=== PATIENT | female | born 1945 | race Caucasian/White ===

== ENCOUNTER 2018-08-27 12:25 | Emergency (ER) | payer OTHER, SELFPAY ==
[2018-08-27 12:34] VITALS: BP 175/85; PULSE 71; RESP 16; O2SAT 95; BMI 39.6
[2018-08-27 14:09] VITALS: TEMP 37.1
--- NOTE | 2018-08-27 14:16 | ED.EXTPRO ---
HPI - Extremity Problem <TONY Blancas - Last Filed: 08/28/18 02:54> General Chief complaint: Extremity Problem,Nontraumatic Stated complaint: allergy reaction Time Seen by Provider: 08/27/18 13:55 Source: patient Mode of arrival: ambulatory Limitations: no limitations History of Present Illness HPI Narrative: This is a 73-year-old female, formal smoker, with history of osteoarthritis presents today with the pruritus on bilateral palm with swelling for 3 days. She also reports swelling on her right hand is worse than left hand. She reports some discomfort from the swelling which cause pressure discomfort in her finger joints. She denies new exposure to lotion, soap, detergent, food. She was seen at walk-in or urgent care yesterday and was prescribed [id number]-[id number] hydrocortisone cream and was instructed to use cool compress. She reports this helped minimally. She has difficulty sleeping from extreme itching and has been taking [id number] Benadryl 2 tabs for every 4-6 hours, Benadryl lotion, calamine lotion which helped mildly. She denies difficulty breathing, oropharyngeal edema, difficulty swallowing, chest pain, nausea vomiting, dizziness. She denies fever chills. Related Data Home Medications Medication Instructions Recorded Confirmed losartan 50 mg tablet 50 mg PO DAILY 08/26/18 08/26/18 omeprazole 20 mg capsule,delayed 20 mg PO DAILY 08/26/18 08/26/18 release propranolol PO 08/26/18 08/26/18 Previous Rx's Medication Instructions Recorded prednisone 40 mg PO DAILY 5 Days #5 tab 08/27/18 ranitidine HCl [Zantac] 150 mg PO DAILY #7 tab 08/27/18 Allergies Allergy/AdvReac Type Severity Reaction Status Date / Time No Known Drug Allergies Allergy Verified 08/27/18 12:34 Review of Systems <TONY Blancas - Last Filed: 08/28/18 02:54> Review of Systems General: See HPI, HEENT: Denies sinus pain, ear pain, sore throat, difficulty swallowing, dizziness. Respiratory: See HPI Cardiovascular: Denies chest pain, palpitations, orthopnea, edema. Gastrointestinal: Denies nausea, vomiting, abdominal pain, diarrhea, constipation, melena. : Denies dysuria, frequency, incontinence, hematuria, urinary retention. Musculoskeletal: Denies weakness, bony pain. Mild discomfort in bilateral finger joints, R>L hand, edema in bilateral hands, R>L Skin: Denies open wound, lesions, rash. Neurologic: Denies weakness, headache, numbness, change in speech, confusion, seizures, incoordination. Psychiatric: No concerning psychosocial issues. 12-point review of systems is negative except for those stated above. PFSH <TONY Blancas - Last Filed: 08/28/18 02:54> Medical History (Updated 08/28/18 @ 02:36 by TONY Blancas) Arthritis (Acute) COPD (chronic obstructive pulmonary disease) (Acute) GERD (gastroesophageal reflux disease) (Acute) HTN (hypertension) (Acute) Social History Smoking Status: Former smoker Social History Smoking Status: Former smoker Exam <TONY Blancas - Last Filed: 08/28/18 02:54> Narrative Exam Narrative: GEN: Alert, oriented x 3, well appearing and nourished, and in mild distress. Witnessed frequent scratching bilateral palms during exam. Head: Normal cephalic, atraumatic. No scalp or temporal tenderness, palpable mass or rash. EYES: Pupils are equal, round, and reactive to light and accommodation. Extraocular muscles are intact bilaterally. There is no subconjunctival hemorrhage, exudate and sclera non-icteric. ENT: Hearing grossly intact. Nose without bleeding, purulent discharge. Mucous membrane moist, no mucosal lesion. Throat without erythema, tonsillar hypertrophy or exudate. Uvula in midline, airway patent. Neck: Trachea in midline. No JVD, non-tender without lymphadenopathy. No masses or thyroid megaly. Supple, non-tender and meningeal signs. CARDIAC: Normal regular rate and rhythm without murmurs, gallops, or rubs. No chest wall tenderness. No cyanosis or pallor. Capillary refill is less than 2 seconds. RESPIRATORY: Lungs are cleat to auscultate bilaterally. No cough, wheezes, rales, or rhonchi. No stridor, respiratory distress, increase work of breathing, or accessary muscle used. ABD: Abdomen soft, nontender and non-distended. No guarding or rebound tenderness to palpate. Bowel sounds are normal in all 4 quadrants. There is no palpable masses or organomegaly. EXT: Moderate edema to R hand, mild edema to L hand. Bilateral palms with dark erythema and warm to touch. Full painless ROM of all extremities with no loss of sensation, strength, effusion. SKIN: Warm, dry, normal color for patient. No lesions or rash other than on bilateral palms. BACK: Nontender without deformity or crepitance. No flank tenderness. NEUROLOGICAL: Alert and oriented to place, time and person. Sensation and motor function intact bilaterally. No facial droops, dysphasia. PSYCHIATRIC: Good judgement and reason, without hallucinations, abnormal affect or abnormal behaviors during the examination. Patient is not suicidal. Initial Vital Signs Initial Vital Signs: Vital Signs Pulse Rate 71 08/27/18 12:34 Respiratory Rate 16 08/27/18 12:34 Blood Pressure 175/85 H 08/27/18 12:34 Pulse Oximetry 95 08/27/18 12:34 <Casper Franco DO - Last Filed: 08/28/18 23:54> Initial Vital Signs Initial Vital Signs: Vital Signs Pulse Rate 71 08/27/18 12:34 Respiratory Rate 16 08/27/18 12:34 Blood Pressure 175/85 H 08/27/18 12:34 Pulse Oximetry 95 08/27/18 12:34 Course <TONY Blancas - Last Filed: 08/28/18 02:54> Course Narrative: Patient was treated with IM Benadryl, Zantac p.o., prednisone p.o., for her symptoms. She reports the pruritus has improved after the medications administered. She also used ice pack on her palms for itching and swelling. She did not had short of breath, difficulty breathing, swelling to oropharynx. Given the patient did not exhibit diffusion to her finger joints, no bony tenderness, no fever, no fatigue, we will treat the patient as an allergic reaction. Orders Ordered: Discontinued Medications Diphenhydramine HCl (Benadryl) 50 mg IM NOW ONE Stop: 08/27/18 14:26 Last Admin: 08/27/18 14:38 Dose: 50 mg Prednisone (Deltasone) 40 mg PO NOW ONE Stop: 08/27/18 14:26 Last Admin: 08/27/18 14:36 Dose: 40 mg Ranitidine HCl (Zantac) 150 mg PO NOW ONE Stop: 08/27/18 14:26 Last Admin: 08/27/18 14:37 Dose: 150 mg Vital Signs - 8 hr 08/27/18 12:34 08/27/18 14:09 08/27/18 15:55 Temperature 98.8 F Pulse Rate 71 57 L Respiratory Rate 16 18 Blood Pressure 175/85 H Blood Pressure [Right Arm] 183/90 H Pulse Oximetry 95 95 08/27/18 15:56 Temperature 98.7 F Pulse Rate Respiratory Rate Blood Pressure Blood Pressure [Right Arm] Pulse Oximetry <Casper Franco DO - Last Filed: 08/28/18 23:54> Orders Ordered: Discontinued Medications Diphenhydramine HCl (Benadryl) 50 mg IM NOW ONE Stop: 08/27/18 14:26 Last Admin: 08/27/18 14:38 Dose: 50 mg Prednisone (Deltasone) 40 mg PO NOW ONE Stop: 08/27/18 14:26 Last Admin: 08/27/18 14:36 Dose: 40 mg Ranitidine HCl (Zantac) 150 mg PO NOW ONE Stop: 08/27/18 14:26 Last Admin: 08/27/18 14:37 Dose: 150 mg Vital Signs - 8 hr 08/27/18 12:34 08/27/18 14:09 08/27/18 15:55 Temperature 98.8 F Pulse Rate 71 57 L Respiratory Rate 16 18 Blood Pressure 175/85 H Blood Pressure [Right Arm] 183/90 H Pulse Oximetry 95 95 08/27/18 15:56 Temperature 98.7 F Pulse Rate Respiratory Rate Blood Pressure Blood Pressure [Right Arm] Pulse Oximetry MDM - Extremity (Nontraumatic) <TONY Blancas - Last Filed: 08/28/18 02:54> Differential Diagnosis Likely cellulitis and other (allergic reaction, cholestasis) Medical Records Attestation: I reviewed the patient's medical records. MDM Narrative Medical decision making narrative: This is a 73-year-old female patient who presents with pruritus, swelling, redness, mild discomfort to her hand from swelling for the last 3 days. No open wounds were appreciated during exam. She had good circulation per radial pulse, motion, sensation. She did not report fever, chills, nausea, vomiting, dizziness. The patient was treated with IM injection of Benadryl, Zantac p.o., prednisone p.o. while in the ER to treat her symptoms. The patient reports symptoms have improved after the medication administration. We talked in length about anaphylactic symptoms and signs and that this is an emergent allergic reaction. We discussed red flag symptoms such as anaphylactic symptoms, fever, increasing hand pain, swelling, nausea, vomiting, dizziness. Her symptoms will be treated as an allergic reaction involving skin and she will be going home with a short burst of steroid and H2 randi in addition to her home medications as she has been using. She was advised to avoid triggers and follow with her primary care physician if her symptoms are not relieved further evaluation. She agrees with the plan of treatment and no further questions expressed at this time. Discharge Plan Departure Patient Disposition: Home Clinical Impression: Allergic reaction Qualifiers: Encounter type: initial encounter Qualified Code(s): T78.40XA - Allergy, unspecified, initial encounter Discharge Date/Time: 08/27/18 16:58 Interventions: ED Discharge Assessment Last Done: 08/27/18 16:57 Instructions: DI for General Allergic Reactions Activity Restrictions/Additional Instructions: You have been diagnosed with [ allergic reaction. The itching on your hands have improved after the medications provided today in ER with Benadryl, Prednisone, and Zantac ]. What to do: *Take your medications as directed. *Follow up with your primary care provider in 2-3 days, call for an appointment. Let them know you were seen in the ED and that we asked you to be seen in follow up. *Return to ED if you have any new, worsening, or concerning symptoms, such as [ chest pain, breathing trouble, any acute worsening symptoms ]. Prescriptions: New prednisone 20 mg tablet 40 mg PO DAILY 5 Days Qty: 5 RF: 0 ranitidine HCl [Zantac] 150 mg tablet 150 mg PO DAILY Qty: 7 RF: 0 No Action losartan 50 mg tablet 50 mg PO DAILY RF: 0 omeprazole 20 mg capsule,delayed release(DR/EC) 20 mg PO DAILY RF: 0 propranolol PO RF: 0 Referrals: Debra Stevens PA-C [Primary Care Provider] - <Casper [place], DO - Last Filed: 08/28/18 23:54> Cosign ED Attending Cosabrilature Attestation: I was immediately available in the department for consultation. Documentation has been reviewed. I agree with assessment and plan.
[2018-08-27] MEDS: predniSONE 20 MG TABLET 40 MG PO (14:36)
[2018-08-27] MEDS: diphenhydrAMINE 50 MG/ML VIAL IM (14:38)
--- NOTE | 2018-08-27 15:47 | PC.NURSE ---
Pt states she is improved, pt understands that the steroids will take time to work. Pt has verbalized readiness to go home. Has a ride home.
[2018-08-27 15:55] VITALS: BP 183/90; PULSE 57; RESP 18; O2SAT 95
[2018-08-27 15:56] VITALS: TEMP 37.1
[2018-08-27 16:42] VITALS: BP 188/105
[2018-08-27 16:44] VITALS: BP 171/83; PULSE 60
== END 2018-08-27 16:58 | disposition home or self-care (01) ==
PROVIDERS: Emergency Provider Nurse Practitioner Family; PCP Physician Assistant Medical
DX: T78.40XA Allergy, unspecified, initial encounter (principal)
CPT/HCPCS: 99283; J1200

== ENCOUNTER → 2022-10-26 11:12 | Outpatient (CLI) | payer OTHER, SELFPAY ==
--- NOTE | 2022-10-26 11:14 | DI.RAD.S_ITS ---
PROCEDURE: FL JOINT INJECTION LARGE LT INDICATIONS: OSTEOARTHRITIS D/T HIP DYSPLASIA COMPARISON: None. TECHNIQUE: The indications, alternatives, benefits, risks, and complications of the procedure were explained to the patient. Written informed consent was obtained and placed in the chart. The patient was placed in an appropriate position on the fluoroscopy table, and a site was chosen for percutaneous access under fluoroscopic guidance. The site was prepped and draped in a sterile fashion. Local anesthetic was administered using a 1% lidocaine solution. A hypodermic or spinal needle was then used to access the symptomatic joint. Intra-articular location of the needle tip was confirmed by injecting a small amount of contrast, followed by steroid administration. The needle was then withdrawn, and a bandage applied to the puncture site. FINDINGS: Joint injected: Left hip Medications injected: 4 mL of 40 mg/mL Kenalog and 0.5% Ropivacaine mixture. Patient's pain before injection: 4-5 out of 10. Patient's pain after injection: 0 out of 10. Complications: None. IMPRESSION: Successful fluoroscopically guided administration of steroid and anaesthetic solution into the left hip joint. Dictated by: Abdelrahman Kaur M.D. on 10/26/2022 at 14:00 Approved by: Abdelrahman Kaur M.D. on 10/26/2022 at 14:02
[2022-10-26] MEDS: LIDOCAINE 1% 20 ML INJ (14:22)
[2022-10-26] MEDS: ROPIVACAINE 0.5% PF 5 MG/ML 20ML VIAL 20 ML INJ (14:23)
[2022-10-26] MEDS: TRIAMCINOLONE 40 MG/ML VIAL INTRA-ARTI (14:24)
== END ==
PROVIDERS: PCP Physician Assistant Medical; Referring Provider Orthopaedic Surgery; Visit Provider Orthopaedic Surgery
DX: M16.32 Unilateral osteoarthritis resulting from hip dysplasia, left hip (principal)
CPT/HCPCS: 20610; 77002

== ENCOUNTER 2023-08-26 10:26 | Inpatient (IN) | payer OTHER, SELFPAY ==
[2023-08-17 07:57] VITALS: BMI 35.9
[2023-08-24] VITALS (12 sets, daily range): BP systolic 103–149; BP diastolic 60–89; PULSE 62–89; RESP 13–20; TEMP 36.1–36.9; O2SAT 93–98; BMI 35.9; BMI 36.7
--- NOTE | 2023-08-24 | DI.RAD.S_ITS ---
PROCEDURE: XR PELVIS 1-2V INDICATIONS: INTRA OP LEFT HIP TECHNIQUE: Intra-operative view of the pelvis and hip acquired. COMPARISON: None. FINDINGS: Bones: Intraoperative devices prior to placement of arthroplasty prostheses are in expected positions. No fractures or suspicious bony lesions. Right hip arthroplasty in place without evidence of complication. Soft tissues: Overlying surgical retractors are present, along with other intraoperative changes. IMPRESSION: Intraoperative image during left hip arthroplasty. Dictated by: Shlomo Noyola M.D. on 08/24/2023 at 13:58 Approved by: Shlomo Noyola M.D. on 08/24/2023 at 13:58
--- NOTE | 2023-08-24 06:52 | DI.RAD.S_ITS ---
P she ROCEDURE: XR HIP W PEL IF DONE LT 2V INDICATIONS: elizabeth TECHNIQUE: 2 view(s) of the hip acquired. COMPARISON: [facility], CR, XR PELVIS WITH LATERAL HIP LEFT, 05/24/2023, 14:02. [facility], CR, XR PELVIS 1-2V, 08/24/2023, 12:24. FINDINGS: Bones: Patient is status post left hip arthroplasty, with hardware components in expected positions. The hip joint appears congruent. Stable right hip arthroplasty which appears intact on limited AP view. The visualized bony structures appear intact. Soft tissues: Overlying postoperative changes are noted. No suspicious soft tissue densities. IMPRESSION: Expected post-operative appearance of a left hip total arthroplasty. Dictated by: Sultana Del Castillo M.D. on 08/24/2023 at 14:57 Approved by: Sultana Del Castillo M.D. on 08/24/2023 at 14:58
[2023-08-24] MEDS: LACTATED RINGERS 1,000 ML 42 ML IV ×2 (09:09→13:08)
[2023-08-24] MEDS: CELECOXIB 200 MG CAPSULE PO (09:25)
[2023-08-24] MEDS: VANCOMYCIN 1,000 MG/200 ML PIGGYBACK 200 MG IV (09:45)
--- NOTE | 2023-08-24 10:58 | PM.PREOP ---
Pre-operative Note Interval Note History & Physical reviewed/Exam performed by Physician: Yes Changes to H&P: No
--- NOTE | 2023-08-24 10:59 | P.OP_ITS ---
Operative Date/Time/Diagnoses Date of procedure: 08/24/23 Time of procedure: 11:20 Pre-op diagnosis: Left hip OA Post-op diagnosis: same Procedure & Clinicians Procedure: Left total hip arthroplasty posterior approach Same procedure as scheduled: Yes Indications: The patient has had progressively worsening left hip pain with radiographic brittny nges consistent with arthritis. Non-operative management has failed and the patient has requested total hip replacement. The risks, benefits and alternatives to surgery were discussed with the patient prior to proceeding. Risks discussed included, but were not limited to, failure to relieve pain, leg length discrepancy, dislocation, stiffness, infection, nerve damage, deep venous thrombosis, pulmonary embolism, stroke, coma, heart attack, permanent paralysis and , as well as the potential need for eventual revision of the prosthetic. Surgeon: Veronique Araujo Food And Drug Inspector: Rupesh Reid Anesthesia Type: Spinal and Sedation Operative Notes Findings: Severe left hip OA, adequate stability, soft Bone Closure Type: primary Specimen(s): none sent Prosthetic devices, grafts, tissues, transplants, or devices: Araujo and nephew R3 size 52, size 3 standard offset polar stem, neutral poly liner,one 6.5 mm screw, 36 by +0 femoral head Estimated Blood Loss (mL): 250 Blood products transfused: none Procedure in detail: The patient was seen in the pre-operative area, where the patient identified the left hip as the operative site and this was marked with my initials. The patient received pre-operative antibiotics and was taken to the operating room and hansa mayuri on the operative table in the right lateral decubitus position after satisfactory anesthesia. A furnace repairer helper out was performed. The left leg was prepared from the ankle to the iliac crest with ChloroPrep in the usual fashion and draped through sterile drapes. A PA was used during the procedure and was essential for intraoperative retraction and safe implantation of the components. The hip was approached through an approximately 20 cm incision centered over the greater trochanter and curving gently posteriorly as it went proximally. This was carried sharply to the fascia pio, which was divided and retracted with a self retaining retractor. The trochanteric bursa was excised with care being taken to avoid the sciatic nerve, which was identified and protected throughout the case. The short external rotators were incised and the capsulomuscular flap was raised and tagged for later repair. The hip was dislocated, and a femoral neck osteotomy performed approximately 15 mm above the lesser trochanter. Retractors were placed around the femur. The canal was opened with a box cutting osteotome, followed by a T handled reamer and a lateralizing reamer. The chili pepper broach was then used, followed by sequential broaching until there was good stability of the broach in the femur. Retractors were placed to expose the acetabulum. The labrum and central soft tissues were removed. Reaming was performed initially going up in 2 mm increments, then 1 mm increments until good bite was obtained with an odd sized reamer. The cup 1 mm larger than the last reamer was then inserted using the appropriate anteversion guides. It was further stabilized with a single screw. A trial neutral liner was placed. The broach was placed in the canal. A trial head and neck were then placed and the hip relocated and checked for leg length and stability. An intraoperative film confirmed the component position and no evidence of fracture. The patient was stable in the position of sleep, of squatting, and could be put through a range of motion with 45 degrees internal rotation without dislocation. At 90 degrees flexion, internal rotation to 70? Was possible before dislocation. The stability was felt to be satisfactory and the appropriate components were opened, and the trials were removed. The acetabular liner was impacted into position. The final stem was then impacted into the prepared femoral canal. A brief Betadine soak was performed while trialing with head options. The hip was meticulously irrigated with normal saline. Finally the femoral head was impacted onto the stem. The acetabulum was cleared of all material and the hip relocated one final time. The capsulomuscular flap was then repaired to the greater trochanter using the tag sutures. The short external rotators were repaired with a nonabsorbable suture. The fascia pio was closed with Vicryl. The subcutaneous layer was closed with barbed sutures and skin rené. A shaniqua dressing was applied and the patient was taken to recovery having tolerated the procedure well. Complications: none Post-operative Condition: stable Disposition: Acute Care Plan for aftercare: The patient will be maintained on a standard total hip replacement protocol with weight bearing as tolerated and posterior hip precautions. The patient will receive Aspirin and sequential compression devices for DVT prophylaxis. The patient will be discharged home when safe for the home environment.
[2023-08-24] MEDS: TRANEXAMIC ACID 1,000 MG VIAL 2000 MG INJ (11:28)
[2023-08-24] MEDS: CEFAZOLIN 2 GM/100 ML PREMIX 100 ML IV ×2 (11:28→20:36)
--- NOTE | 2023-08-24 12:06 | SUR.OPER ---
Lateral on padded OR bed. Gel axillary roll. Arms secured on padded armboard with pillow supporting top arm. Padded hip positioner braces x4 - anterior and posterior chest and pelvis. Additional gel pad used anterior pelvis. Gel pad under bottom leg from knee to foot and secured with tape over sheet.
[2023-08-24] MEDS: BUPIVACAINE 0.25% (PF) 60 ML, EPINEPHrine 0.3 MG INJ (12:12)
[2023-08-24] MEDS: BUPIVACAINE LIPOSOME 266 MG/20 ML VIAL INJ (12:13)
[2023-08-24] MEDS: HYDROMORPHONE 1 MG INJ IV (13:45)
[2023-08-24] MEDS: MEPERIDINE 50 MG/ML INJ 25 MG IV (13:51)
[2023-08-24] MEDS: OXYCODONE IR 5 MG TABLET PO ×2 (13:55→15:06)
[2023-08-24] MEDS: LACTATED RINGERS 1,000 ML 100 ML IV ×2 (15:03→22:44)
[2023-08-24] MEDS: ACETAMINOPHEN 325 MG TABLET 650 MG PO (15:05)
[2023-08-24] MEDS: IBUPROFEN 400 MG TABLET PO (15:06)
[2023-08-24] MEDS: OXYCODONE IR 10 MG TABLET PO (17:40)
[2023-08-24] MEDS: hydrOXYzine HCL 25 MG TABLET 50 MG PO (17:40)
[2023-08-24] MEDS: DOCUSATE 100 MG CAPSULE PO (20:36)
[2023-08-24] MEDS: GABAPENTIN 300 MG CAPSULE PO (20:36)
[2023-08-24] MEDS: ASPIRIN EC 81 MG TABLET PO (20:36)
[2023-08-24] MEDS: HYDROMORPHONE 0.5 MG INJ IV (20:37)
[2023-08-24] MEDS: PANTOPRAZOLE DR 20 MG TABLET PO (20:38)
[2023-08-24] MEDS: SODIUM CHLORIDE 0.9% FLUSH 10 ML IV (20:38)
[2023-08-24] MEDS: TOPIRAMATE 25 MG TABLET PO (20:38)
[2023-08-25] MEDS: CEFAZOLIN 2 GM/100 ML PREMIX 100 ML IV (03:22)
[2023-08-25] MEDS: IBUPROFEN 400 MG TABLET PO ×2 (04:39→09:08)
[2023-08-25] MEDS: ACETAMINOPHEN 325 MG TABLET 650 MG PO (04:39)
[2023-08-25] MEDS: HYDROMORPHONE 0.5 MG INJ IV (04:40)
[2023-08-25] MEDS: PANTOPRAZOLE DR 20 MG TABLET PO ×2 (06:31→21:45)
[2023-08-25 06:46] LABS: Hematocrit 35.8 % (36-46)
[2023-08-25] MEDS: OXYCODONE IR 10 MG TABLET PO (06:56)
[2023-08-25] MEDS: hydrOXYzine HCL 25 MG TABLET 50 MG PO (06:56)
[2023-08-25 08:00] VITALS: BP 122/65; PULSE 61; RESP 18; TEMP 36.9; O2SAT 95
--- NOTE | 2023-08-25 08:55 | PM.PNPO.1 ---
Subjective Subjective Date Patient Seen: 08/25/23 Time Patient Seen: 08:30 Interval history: Patient has found eating in bed today. She says her pain is controlled with medications but had to have an IV dose of Dilaudid last night. She worked with physical therapy yesterday but required multiple people for assistance. She has not feel she is able to return home today as she does not feel comfortable yet. Exam Vital Signs (past 8 hours): - 08/25/23 08:00 Temperature 98.4 F Pulse Rate 61 Respiratory Rate 18 Blood Pressure 122/65 Pulse Oximetry 95 Oxygen Delivery Method Room Air Oxygen Flow Rate 0 Narrative Exam Narrative: Patient demonstrates upper extremity tremors today while trying to eat. Dressing appears to be well-maintained time. 5/5 strength in hip flexors, quadriceps, hamstrings, DF, PF, EHL bilaterally. Sensation to light touch intact throughout BLE. Calves soft, compressible, nontender. Objective Labs 08/25/23 06:25 Labs: Laboratory Results - last 24 hr 08/25/23 06:25 Hgb 12.0 Hct 35.8 L [facility] Medical History (Updated 08/17/23 @ 08:01 by Mehreen Hudson RN) History of esophageal dilatation (09/2014) Anxiety Breast cancer, left (12/2018) Osteoarthritis Pre-diabetes Kidney stones HLD (hyperlipidemia) Benign essential tremor Arthritis GERD (gastroesophageal reflux disease) COPD (chronic obstructive pulmonary disease) Surgical History (Updated 08/17/23 @ 08:01 by Mehreen Hudson RN) Hx of dilation and curettage History of lumpectomy of left breast (2018) History 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) History of tonsillectomy History of urologic surgery Hx of tubal ligation History of section Hx of bilateral cataract extraction Social History household members: significant other Smoking Status: Former smoker alcohol intake: former Assessment & Plan Post-op Postoperative Procedures: Procedures Operation Date: 08/24/23 10:45 Actual Procedure Side Surgeon p Total Hip Arthroplasty Left Veronique Araujo MD Postoperative day: 1 Postoperative status: doing well Postoperative plan: routine post-op care Postoperative plan narrative: Discussed with nursing staff to try to control pain with 5 mg oxycodone. Continue to help ambulate with physical therapy. Patient's anxiety could be a contributing factor to her hesitancy to being discharged home. We will reach around later in the day after she is worked with physical therapy. If she shows improvement we will discuss discharge to home. Time Spent With Patient Time with patient: less than 15 minutes Quality VTE Deep Vein Thrombosis/Pulmonary Embolism Present on Admission: No
[2023-08-25] MEDS: DOCUSATE 100 MG CAPSULE PO ×2 (09:07→21:44)
[2023-08-25] MEDS: LORATADINE 10 MG TABLET PO (09:07)
[2023-08-25] MEDS: ATORVASTATIN 20 MG TABLET PO (09:08)
[2023-08-25] MEDS: ASPIRIN EC 81 MG TABLET PO ×2 (09:08→21:44)
[2023-08-25] MEDS: GABAPENTIN 300 MG CAPSULE 900 MG PO (09:08)
[2023-08-25] MEDS: SODIUM CHLORIDE 0.9% FLUSH 10 ML IV ×2 (09:09→21:45)
[2023-08-25] MEDS: OXYBUTYNIN 5 MG TABLET PO (09:09)
[2023-08-25] MEDS: TOPIRAMATE 25 MG TABLET PO ×2 (09:09→21:44)
[2023-08-25] MEDS: polyethylene glycoL 3350 17 GM POWD.PACK PO (09:13)
--- NOTE | 2023-08-25 09:15 | PT.IIE ---
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) History of urologic surgery Hx of bilateral cataract extraction Hx of dilation and curettage Hx of tubal ligation Medical History (Last Updated 08/17/23 @ 08:01 by Mehreen Hudson RN) Anxiety Arthritis Benign essential tremor Breast cancer, left (12/2018) COPD (chronic obstructive pulmonary disease) GERD (gastroesophageal reflux disease) History of esophageal dilatation (09/2014) HLD (hyperlipidemia) Kidney stones Osteoarthritis Pre-diabetes Physical Therapy Inpatient Evaluation/Re-Eval M1 PT/OT-IP Prior Functional Status Start: 08/25/23 13:39 Freq: NEEDED Status: Active Protocol: Document 08/25/23 09:15 AB (Rec: 08/25/23 13:58 [id number]) Medical Review Prior Functional Status Medical History Reviewed Yes Communication able to make needs known; pt sleepy and needs frequent cues to stay awake Mobility and Gait pt stated that she was modified indpendent with all mobilities and ambulation using a 4WW Social History Household Members significant other Living Arrangements House Number of Floors (Floors) One Floor Number of Stairs To Enter/Railing? has a ramp to enter Home Environment High Toilet,Walk in Shower, Ramp Home Equipment Four Wheel Walker,Straight Cane,Shower Seat with Backrest ,Hand Held Shower,Grab Bars Near Toilet,Grab Bars In Shower Additional Social History Comment pt stated that she has L side bed cane M2 PT-IP Current Condition Start: 08/25/23 13:39 Freq: NEEDED Status: Active Protocol: Document 08/25/23 09:15 AB (Rec: 08/25/23 13:58 [id number]) Physical Therapy Current Condition Current Condition Evaluation Date 08/25/23 Treatment Diagnosis s/p L SILVIA posterior; difficulty in walking Onset Date 08/24/23 M3 PT-IP Subjective Start: 08/25/23 13:39 Freq: NEEDED Status: Active Protocol: Document 08/25/23 09:15 AB (Rec: 08/25/23 13:58 AB [id number]) Subjective Physical Therapy Visit Type Type Initial Evaluation Visit Start Time 09:15 Visit Stop Time 10:30 Number of REFINERY PROCESS ENGINEER Visits 0 Physical Therapy Visit Comments Patient Comments agreeable to do PT; easily gets agitated and anxious Therapy Pain Assessment Pain Present Pain Present Denied Pain M4 PT-IP Mobility and Gait Start: 08/25/23 13:39 Freq: NEEDED Status: Active Protocol: Document 08/25/23 09:15 AB (Rec: 08/25/23 13:58 AB [id number]) PT-Bed Mobility Assessment Supine to Sit Supine to Sit Maximum Assistance,2 Person Assistance,Head of Bed Elevated,Bedrails Scooting Scooting to Edge of Bed Maximum Assistance,Dependent PT-Transfer Assessment Sit to and From Stand Sit to and from Stand Maximum Assistance,2 Person Assistance,Use of Upper Extremities Equipment Transfer Assistive Device Gait Belt,Front Wheeled Walker Orthotic/Prosthetic Devices or Brace: No Transfers Transfer Destination Chair Transfer Technique Stand Step Pivot Transfer Ability Level of Assist Maximum Assistance,2 Person Assistance,Use of Upper Extremities Comments Mobility Comments pt supine in bed and sleepy, able to wake up but needed frequent cues to stay awake. pt also presents with tremors on BUE/LE and even facial tremors. pt stated that she takes topamax for her tremors and she gets sleepy with the medication. obtained PLOF and home set up from pt. post-op folder provided and educated pt regarding posterior hip precautions on LLE but pt unable to recall. stated that she cannot think due to feeling sleepy. pt completed supine to sti max Ax 1-2 with max cues, HOB elevated and pt used bed rail to assist and also side of FWW as a rail with PT stabilizing . pt sat on EOB mod to max A for sitting balance with increase posterior trunk lean and cued to correct. pt with difficulty following instructions and with delay in execution requiring increase time to complete tasks and repeated cues. max A x 2 to total A x 2 for scooting to EOB. pt completed sit to stand max A x 2 and max cues and assisted pt with brief management. pt completed step transfer to chair max A x 2 and max cues using FWW. required assist with weight shifting and to move BLE. pt seems to have freezing episodes requiring assist with initiation. max A x 2 to total Ax 2 for controlled descent to chair with assist with LLE for hip precautions. positioned pt on the chair total A x 2. call light and table placed within reach. informed pt regarding SNF rehab and pt understood. Gait Assessment Comments Gait Comments unable at this time PT-Balance Assessment Sitting Balance and Reactions Static Sitting Balance Ability Fair Dynamic Sitting Balance Ability Poor Standing Balance and Reactions Static Standing Balance Ability Poor Dynamic Standing Balance Ability Poor Device Used FWW M5 PT-IP Objective Assessments Start: 08/25/23 13:39 Freq: NEEDED Status: Active Protocol: Document 08/25/23 09:15 AB (Rec: 08/25/23 13:58 AB [id number]) Orientation Orientation/Cognition Level of Alertness Confusional State Orientation Name Language Function Ability Hard of Hearing Safety Awareness Decreased Safety Awareness Memory Description Short Term Impaired,Fdc Impaired Strength Lower Extremity Strength Assessment Bilaterally Impaired Comments Strength Comments RLE: 3/5 LLE: 3-5 pt will say that she is not able to move LLE when instructed but when ask again to move, able to move but not full range. pt with difficulty initiating movement . Muscle Tone Muscle Tone WNL Yes M6 PT-IP Treatment Start: 08/25/23 13:39 Freq: NEEDED Status: Active Protocol: Document 08/25/23 09:15 AB (Rec: 08/25/23 13:58 AB [id number]) Physical Therapy Treatment Exercises Exercises Heel Slides Education Education Provided Precautions,Weight Bearing Status,Post-Op Packet,Safety M7 PT-IP Assessment and Plan Start: 08/25/23 13:39 Freq: NEEDED Status: Active Protocol: Document 08/25/23 09:15 AB (Rec: 08/25/23 13:58 AB [id number]) PT Summary Assessment and Plan Potential Rehabilitation Potential Fair Status of Condition at Evaluation Unstable Summary Impairments Pain,ROM,Strength,Balance, Coordination,Sensation,Tone, Cognition,Bed Mobility, Transfers,Gait,Activity Tolerance Assessment Summary pt is a 78 y/o F s/p L SILVIA posterior approach POD 1. pt has L hip posterior precautions and is WBAT. pt requiring max A x 2 to total A x 2 with mobilities and recommending mechanical lift transfers with nursing staff at this time. pt will require SNF rehab to improve overall strength and mobility. Goals Bed Mobility Goal Minimal Assistance Transfer Goal Minimal Assistance,Front Wheeled Walker Gait Goal Minimal Assistance,Front Wheel Walker Gait Distance 50 Other Goals improve bed mobility, transfers, ambulation using fWW ~ 100 ft SBA Days to Meet Goals 10 Frequency of Treatment Frequency Of Treatment Twice a Day Other frequency or as tolerated Treatment Plan Physical Therapy Treatment Plan Bed Mobility Training,Transfer Training,Gait Training, Therapeutic Exercise,Balance Retraining,Post Op Education, Discharge Planning,Hot or Cold Pack,Neuromuscular Re-ed, Coordination Retraining,Manual Therapy Precautions Posterior Hip Precautions No Hip Flexion > 90 degrees,No Hip Internal Rotation,No Hip Adduction Weight Bearing Status Weight Bearing Status Weight Bear as Tolerated Allowed Weight Bearing Amount (enter % LLE WBAT or #) (%) Recommendations To Nursing Amount of Assist Needed Mechanical Lift Discharge Recommendations PT Discharge Recommendations SNF Rehab Transportation Needs at Discharge Wheelchair/Cabulance
--- NOTE | 2023-08-25 10:28 | CM.DANOTE ---
Initial DCP Assessment Note Pt is a 78 yo female, resident of [place], now POD#1 from [facility] hip surgery. PCP: Debra Stevens Payer: [employer] Reviewed chart, pt discussed in multidisciplinary rounds this morning. Met w/patient to introduce self and role. Patient lives independently with AMI Saeed who is a bit more fragile than she. Patient feels she will be okay returning home and requests HH therapies and RN. Patient has no agency preference. Therapies pending this morning. F and order in place; [facility], kindly agreed to send referral to [facility] based on soonest availability. CM team will plan to follow clinical course closely for assist in discharge plan coordination. CA Eller Discharge Planning/Care Management CM Discharge Assessment Start: 08/25/23 10:24 Freq: Status: Active Protocol: Document 08/25/23 10:24 GABRIEL (Rec: 08/25/23 10:28 GABRIEL [id number]) Discharge Planning Assessment Assigned Drop Shipment Clerk CA Maria DPOA/Assigned Designee Name Christophe (S.O.) Contact Information [phone] Advance Directives? No History Provided By Patient,Medical Record Prior Living Arrangements House Household Members significant other Type of transporation used prior to Drives own vehicle admit Independent with ADL's Yes Is patient alert and oriented? Yes Caregiver for Another Yes: AMI Saeed is fragile Patient/Family Preference Home with Home Health Barriers to Discharge No Discharge Plan Home with Home Health Transportation Arrangement TBD Referrals Initiated Home Health SNF/HH Preference Patient lives in [place] and has no agency preference.
--- NOTE | 2023-08-25 13:56 | OT.IPNOTE ---
Attempted to see pt for OT eval and pt very groggy and not able to keep her eyes open. Pt just orientated to name and place and not aware that she had hip surgery. Pt not able to stay awake. Pt on RA and 80's, nursing notified. Nurse came in to put pt on 2L of O2 and now at 96%. Pt too groggy to safely follow commands at this time and best to use mechanical lift for transfers. Pending progress, pt may need skilled rehab. NO charge.
--- NOTE | 2023-08-25 14:35 | PT.IPTN ---
Current Diagnoses Unilateral primary osteoarthritis, left hip (08/24/23) Surgery Performed Operation Date: 08/24/23 10:45 Actual Procedures p Total Hip Arthroplasty(Left) - Veronique Araujo MD Physical Therapy Treatment Note M2 PT-IP Current Condition Start: 08/25/23 13:39 Freq: NEEDED Status: Active Protocol: Document 08/25/23 09:15 AB (Rec: 08/25/23 13:58 AB [id number]) Physical Therapy Current Condition Current Condition Evaluation Date 08/25/23 Treatment Diagnosis s/p L SILVIA posterior; difficulty in walking Onset Date 08/24/23 M3 PT-IP Subjective Start: 08/25/23 13:39 Freq: NEEDED Status: Active Protocol: Document 08/25/23 14:35 AB (Rec: 08/25/23 17:35 AB [id number]) Subjective Physical Therapy Visit Type Type Treatment Note Visit Start Time 14:35 Visit Stop Time 15:50 Number of UMBRELLA TIPPER HAND Visits 0 Physical Therapy Visit Comments Patient Comments pt is agreeable to do PT M4 PT-IP Mobility and Gait Start: 08/25/23 13:39 Freq: NEEDED Status: Active Protocol: Document 08/25/23 14:35 AB (Rec: 08/25/23 17:35 AB [id number]) PT-Transfer Assessment Sit to and From Stand Sit to and from Stand Maximum Assistance,2 Person Assistance,Use of Upper Extremities Equipment Transfer Assistive Device Gait Belt,Front Wheeled Walker Orthotic/Prosthetic Devices or Brace: No Comments Mobility Comments pt sitting on the chair and asleep. woke pt up and agreed to do PT. pt continues to be sleepy and slow to respond to questions and instructions. pt unable to recall her precautions. educated pt again on posterior hip precautions. completed sit to stand from chair max A x 2 and max cues. max A x 2 for standing balance using FWW for support. pt with increase retrolean and needing max A x 1-2 to correct . instructed to march in place but unable. pt with fear of falling and requested to sit back down. pt slow to respond to instructions. pt sat back on chair and rested. agreed to stand again and completed max A x 2 and max cues. instructed to take steps and completed x 2 steps using FWW max A x 2 and max cues. assist with weight shifting and move LE to take steps. pt sat back on chair. pt needing to be cleaned up and for brief change. agreed to stand again . completed sit to stand max A x 2 and max cues. needing max A x 2 using FWW for support while NAC assists with brief change. max A x 2 for controlled descent to chair. positioned pt on the chair. left pt with OT. M5 PT-IP Objective Assessments Start: 08/25/23 13:39 Freq: NEEDED Status: Active Protocol: Document 08/25/23 09:15 AB (Rec: 08/25/23 13:58 AB [id number]) Orientation Orientation/Cognition Level of Alertness Confusional State Orientation Name Language Function Ability Hard of Hearing Safety Awareness Decreased Safety Awareness Memory Description Short Term Impaired,Long-Term Impaired Strength Lower Extremity Strength Assessment Bilaterally Impaired Comments Strength Comments RLE: 3/5 LLE: 3-5 pt will say that she is not able to move LLE when instructed but when ask again to move, able to move but not full range. pt with difficulty initiating movement . Muscle Tone Muscle Tone WNL Yes M6 PT-IP Treatment Start: 08/25/23 13:39 Freq: NEEDED Status: Active Protocol: Document 08/25/23 14:35 AB (Rec: 08/25/23 17:35 AB [id number]) Physical Therapy Treatment Education Education Provided Precautions,Safety M7 PT-IP Assessment and Plan Start: 08/25/23 13:39 Freq: NEEDED Status: Active Protocol: Document 08/25/23 14:35 AB (Rec: 08/25/23 17:35 AB [id number]) PT Summary Assessment and Plan Potential Rehabilitation Potential Fair Summary Impairments Pain,ROM,Strength,Balance, Coordination,Sensation,Tone, Cognition,Bed Mobility, Transfers,Gait,Activity Tolerance Progress Towards Goals Slow Progress due to Activity Tolerance,Slow Progress - Other Assessment Summary pt continues to be sleepy and slow to respond to instructions needing max A x 2 for sit to stand. pt unable to ambulate and was only able to take 2 steps using FWW max A x 2 and max cues. pt will require SNF rehab to improve mobility. will continue to assess. Goals Bed Mobility Goal Minimal Assistance Transfer Goal Minimal Assistance,Front Wheeled Walker Gait Goal Minimal Assistance,Front Wheel Walker Gait Distance 50 Other Goals improve bed mobility, transfers, ambulation using fWW ~ 100 ft SBA Days to Meet Goals 10 Frequency of Treatment Frequency Of Treatment Twice a Day Other frequency or as tolerated Treatment Plan Physical Therapy Treatment Plan Bed Mobility Training,Transfer Training,Gait Training, Therapeutic Exercise,Balance Retraining,Post Op Education, Discharge Planning,Hot or Cold Pack,Neuromuscular Re-ed, Coordination Retraining,Manual Therapy Precautions Posterior Hip Precautions No Hip Flexion > 90 degrees,No Hip Internal Rotation,No Hip Adduction Weight Bearing Status Weight Bearing Status Weight Bear as Tolerated Allowed Weight Bearing Amount (enter % LLE WBAT or #) (%) Recommendations To Nursing Amount of Assist Needed Mechanical Lift Discharge Recommendations PT Discharge Recommendations SNF Rehab Transportation Needs at Discharge Wheelchair/Cabulance
--- NOTE | 2023-08-25 16:00 | OT.IP.EVAL ---
Current Diagnoses Unilateral primary osteoarthritis, left hip (08/24/23) Surgery Performed Operation Date: 08/24/23 10:45 Actual Procedures p Total Hip Arthroplasty(Left) - Veronique Araujo MD Past Medical History (Last Updated 08/17/23 @ 08:01 by Mehreen Hudson, RN) Anxiety Arthritis Benign essential tremor Breast cancer, left (12/2018) COPD (chronic obstructive pulmonary disease) GERD (gastroesophageal reflux disease) History of esophageal dilatation (09/2014) HLD (hyperlipidemia) Kidney stones Osteoarthritis Pre-diabetes Surgical History (Last Updated 08/17/23 @ 08:01 by Mehreen Hudson RN) History of section History of lumpectomy of left breast (2018) History of tonsillectomy History 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) History of urologic surgery Hx of bilateral cataract extraction Hx of dilation and curettage Hx of tubal ligation Occupational Therapy Inpatient Evaluation/Re-Eval M1 PT/OT-IP Prior Functional Status Start: 08/25/23 13:39 Freq: NEEDED Status: Active Protocol: Document 08/25/23 16:06 [facility] (Rec: 08/25/23 16:19 [facility] [id number]) Medical Review Prior Functional Status Medical History Reviewed Yes Communication able to make needs known; pt sleepy and needs frequent cues to stay awake Mobility and Gait pt stated that she was modified independent with all mobilities and ambulation using a 4WW Activities of Daily Living and IADL's Pt very groggy and not able to consistently answer the questions at this time. Social History Household Members significant other Living Arrangements House Number of Floors (Floors) One Floor Number of Stairs To Enter/Railing? has a ramp to enter Home Environment High Toilet,Walk in Shower, Ramp Home Equipment Four Wheel Walker,Straight Cane,Shower Seat with Backrest ,Hand Held Shower,Grab Bars Near Toilet,Grab Bars In Shower Additional Social History Comment pt stated that she has L side bed cane M2 OT-IP Current Condition Start: 08/25/23 16:06 Freq: Status: Active Protocol: Document 08/25/23 16:06 [facility] (Rec: 08/25/23 16:19 [facility] [id number]) Occupational Therapy Current Condition Current Condition Evaluation Date 08/25/23 Treatment Diagnosis S/P L SILVIA posterior Post Operative Precautions Posterior Hip Precautions No Hip Flexion > 90 degrees,No Hip Internal Rotation,No Hip Adduction M3 OT- IP Subjective and Pain Start: 08/25/23 16:06 Freq: Status: Active Protocol: Document 08/25/23 16:06 [facility] (Rec: 08/25/23 16:19 [facility] [id number]) OT- Subjective Occupational Therapy Visit Type Type Initial Evaluation Visit Start Time 15:17 Visit Stop Time 16:00 Occupational Therapy Visit Comments Patient Comments Pt more alert and able to see pt with PT. Patient/Caregiver Goals TO get better. OT Pain Assessment Pain When Pain Assessed During Mobility Pain Present Pain Present Pain Reported M4 OT- IP ADL's Start: 08/25/23 16:06 Freq: Status: Active Protocol: Document 08/25/23 16:06 [facility] (Rec: 08/25/23 16:19 [facility] [id number]) OT [id number] Comments OT Self-Feeding Comments Pt able to drink water but has not had an appetite to eat. Nursing to give her an Ensure. OT ADL-Grooming Comments OT Grooming Comments NOt performed. OT ADL-Oral Care Comments Oral Care Comments Not performed. OT ADL-Dressing General Eval Lower Body Dressing Ability Total Assistance Comments OT Dressing Comments Total assist for socks and brief change. Pt able to stand with MAX AX 2 with FWW , while nursing aid able to change her brief. OT ADL-Toileting General Evaluation Toileting Ability Total Assistance Comments OT Toileting Comments Pure wick in place. OT ADL-Bathing Comments OT Bathing Comments Sponge bath more appropriate at this time. M5 OT- IP IADL's Start: 08/25/23 16:06 Freq: Status: Active Protocol: Document 08/25/23 16:06 [facility] (Rec: 08/25/23 16:19 [facility] [id number]) OT-Instrumental Activities of Daily Living Home Safety Awareness Awareness of Need for Assistance at Home Decreased Awareness Ability to Problem Solve Emergency Unable to Problem Solve Situations Home Safety Comments Pt is very groggy and having difficulty to follow command and states her prior level of care and set-up. At this time pt will need 24/7 assist for all needs. M6 OT- IP Functional Cognition Start: 08/25/23 16:06 Freq: Status: Active Protocol: Document 08/25/23 16:06 [facility] (Rec: 08/25/23 16:19 [facility] [id number]) Cognitive Factors Limiting Selfcare Function Cognitive Ability Level of Alertness Drowsy Patient Orientation Name,Place Ability to Follow Commands Able to Follow One Step Commands with Increased Time, Able to Follow One Step Commands with Repetition Safety Awareness Decreased Recall of Precautions,Decreased Ability to Apply Precautions Cognitive Comments Cognitive Assessment Comments Pt is very groggy and mainly just orientated to her name and did not recall that she had surgery. Pt not able to recall her precautions even after education. Pt is very groggy,sleepy, and having difficulty to retain information at this time. Pt in the mid 80-'s for O2 and place on 2L and currently at 93%. Pt needing lots of encouragement , tactile,verbal cues, and step by step commands. OT- Vision and Hearing OT- Hearing Assessment OT- Hearing Assessment WFL OT- Vision Assessment Visual Acuity Glasses All The Time Vision Assessment Comments Pt at time eye gaze and just staring forwards. Pt very groggy. M7 OT- IP Mobility and Balance Start: 08/25/23 16:06 Freq: Status: Active Protocol: Document 08/25/23 16:06 [facility] (Rec: 08/25/23 16:19 [facility] [id number]) OT-Transfer Assessment Sit to and From Stand Sit to and from Stand Maximum Assistance,2 Person Assistance Comments Mobility Comments MAX AX 2 to stand to the FWW. MAX AX 2 to take a couple steps, assist for balance, and to guide the FWW. OT- Balance Assessment Sitting Balance and Reactions Static Sitting Balance Ability Fair Dynamic Sitting Balance Ability Poor Standing Balance and Reactions Static Standing Balance Ability Poor Dynamic Standing Balance Ability Poor M8 OT- IP Objective Assessments Start: 08/25/23 16:06 Freq: Status: Active Protocol: Document 08/25/23 16:06 [facility] (Rec: 08/25/23 16:19 [facility] [id number]) OT Gross Range of Motion Upper Extremity Range of Motion Assessment Within Functional Limits OT Strength Upper Extremity Strength Assessment Within Functional Limits Comments Strength Comments WFl for needs. OT-Muscle Tone Assessment Comments Muscle Tone Comments Pt has essential tremors. M9 OT- IP Assessment and Plan Start: 08/25/23 16:06 Freq: Status: Active Protocol: Document 08/25/23 16:06 [facility] (Rec: 08/25/23 16:19 [facility] [id number]) OT Summary Assessment and Plan Potential Rehabilitation Potential Good Analytic Complexity at Evaluation Low Summary OT Impairments Pain,Strength,Balance, Functional Cognition, Functional Mobility,Grooming, Dressing,Toileting,Bathing, Toilet Transfers,Shower Transfers,Activity Tolerance Progress Towards Goals Slow Progress due to Pain,Slow Progress due to Medical Issues,Slow Progress due to Activity Tolerance,Slow Progress due to Cognition Assessment Summary Pt low complexity and main barriers are pain, pt so groggy and having difficulty to follow commands at this time and needing MAXA X2 with FWW to stand and take a few steps at this time. At this time pt will greatly benefit from skilled rehab. Goals Self-Feeding Goal Independent Grooming Goal Independent Dressing Goal Minimal Assistance Toileting Goal Standby Assistance Bathing Goal Minimal Assistance Toilet Transfer Goal Standby Assistance Shower Transfer Goal Contact Guard Assistance Days to Meet Goals 20 Frequency of Treatment Frequency Of Treatment Once a Day Treatment Plan OT Treatment Plan ADL Training,Functional Cognition Training,Functional Mobility,Patient/Family Education,Discharge Planning Discharge Recommendations OT Discharge Recommendations SNF Rehab Transportation Needs at Discharge Wheelchair/Cabulance
[2023-08-25 20:00] VITALS: BP 122/65; PULSE 84; RESP 18; TEMP 36.7; O2SAT 94
[2023-08-25] MEDS: GABAPENTIN 300 MG CAPSULE PO (21:44)
[2023-08-26 08:00] VITALS: BP 126/66; PULSE 73; RESP 17; TEMP 36.7; O2SAT 93
[2023-08-26] MEDS: polyethylene glycoL 3350 17 GM POWD.PACK PO (08:15)
[2023-08-26] MEDS: TOPIRAMATE 25 MG TABLET PO ×2 (08:15→20:38)
[2023-08-26] MEDS: ASPIRIN EC 81 MG TABLET PO ×2 (08:15→20:38)
[2023-08-26] MEDS: ATORVASTATIN 20 MG TABLET PO (08:16)
[2023-08-26] MEDS: OXYCODONE IR 5 MG TABLET PO ×3 (08:16→20:38)
[2023-08-26] MEDS: ACETAMINOPHEN 325 MG TABLET 650 MG PO ×2 (08:16→20:36)
[2023-08-26] MEDS: OXYBUTYNIN 5 MG TABLET PO (08:16)
[2023-08-26] MEDS: PANTOPRAZOLE DR 20 MG TABLET PO ×2 (08:16→20:36)
[2023-08-26] MEDS: LORATADINE 10 MG TABLET PO (08:16)
[2023-08-26] MEDS: DOCUSATE 100 MG CAPSULE PO ×2 (08:16→20:38)
[2023-08-26] MEDS: GABAPENTIN 300 MG CAPSULE 900 MG PO (08:16)
[2023-08-26] MEDS: SODIUM CHLORIDE 0.9% FLUSH 10 ML IV ×2 (08:17→20:38)
--- NOTE | 2023-08-26 09:00 | PM.PNPO.1 ---
Subjective Subjective Date Patient Seen: 08/26/23 Time Patient Seen: 09:00 Interval history: Mehreen is sitting up in bed, and RN is getting ready to insert a Dumont catheter as pt has not voided independently since surgery. Her RN reports straight cathing since surgery with large amounts of urine in her bladder. Unfortunately, she has been given her oxybutynin daily since surgery, including this morning. She is not very ambulatory and still requiring 2-person assist w/ PT; PT is recommending SNF. Pt would very much prefer to go home w/ her partner, Christophe, and HH, but I discussed with her that this may not be the safest option. She continues to c/o severe pain about her incision. Exam Vital Signs (past 8 hours): - 08/26/23 08:00 Temperature 98.1 F Pulse Rate 73 Respiratory Rate 17 Blood Pressure 126/66 Pulse Oximetry 93 Oxygen Flow Rate 0 Oxygen Delivery Method Nasal Cannula Oxygen Flow Rate 0 Narrative Exam Narrative: 5/5 strength in DF, PF, EHL; 4/5 hip flexors, quadriceps, hamstrings on left. Sensation to light touch intact throughout LLE, calf soft and compressible. SAPNA dressing functioning, scant bloody drainage. 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 Will ask CM to discuss SNF options w/ pt. Hopeful to d/c home tomorrow if she makes good progress w/ PT today, but will likely need SNF. (2) Acute urinary retention: Assessment and Plan narrative: Likely d/t a combination of neuraxial anesthesia, immobility, and continuation of bladder relaxant medication. Pt denies frequent UTIs; reports one in remote past. Will d/c oxybutynin, start tamsulosin, order UA and treat if appropriate. Advise against dumont placement as it will further inhibit movement and increase chance of UTI. Postoperative Procedures: Procedures Operation Date: 08/24/23 10:45 Actual Procedure Side Surgeon p Total Hip Arthroplasty Left Veronique Araujo MD Postoperative day: 2 Quality VTE Deep Vein Thrombosis/Pulmonary Embolism Present on Admission: No
[2023-08-26] MEDS: TAMSULOSIN 0.4 MG CAPSULE PO (09:11)
--- NOTE | 2023-08-26 09:32 | CM.DPC ---
Addendum entered by CA Rodgers 08/26/23 15:11: ADD: Return call from [facility] confirming they can accept pt if [facility] auth obtained. YAMILA RN spoke to Angella at [facility] and confirmed that she is aware of likely need to change pt to Inpt Status due to pt needs and will review for SNF auth and confirmed fax number. AD met bedside with pt and updated on [facility] review and awaiting determination and [facility] acceptance and [facility] ongoing review and would need one time auth. BF Original Note: DCP SNF Planning: Per PT/OT, pt requiring increased assistance yesterday with therapies post hip surgery and will work with pt again this morning to see if she is making progress but currently recommending SNF. SW met bedside with pt and explained role and she confirms she lives in [place] with her Sig Other and currently feels SNF likely will be needed unless she does significantly better with PT/OT today. AD provided the SNF Choice list and discussed [facility] contracted facilities. Pt preference is 1) [facility] 2) [facility] and agreeable to referrals. AD discussed that pt currently only auth'd for surgery as SDC with [facility] and therefore likely need for quick discharge this weekend and pt aware and AD also discussed need for [facility] to auth SNF and that good chance [facility] might not be able to accept over the weekend but that SW will make referrals to both SNFs and determine options for discharge and update pt. Pt remains agreeable and acknowledges understanding. SW called [facility] admission phone and spoke to Thalia and discussed and she will review the faxed and emailed referral but they would need to get one time auth from [facility]. AD called [facility] admissions and provided new referral and they will review and aware likely need for weekend discharge. SW called [facility] weekend and determine that Angella [phone] is reviewing for [facility] this weekend and left her a msg requesting urgent review for SNF auth and faxed referral for review. Plan: SW to follow closely for SNF reviews and [facility] review to confirm they will auth SNF for likely weekend discharge. SW to follow for PT today to determine if pt progressed enough for d/c home vs SNF. CA Rodgers
--- NOTE | 2023-08-26 11:05 | PT.IPTN ---
Current Diagnoses Unilateral primary osteoarthritis, left hip (08/24/23) Other retention of urine (08/24/23) Presence of unspecified artificial hip joint (08/24/23) Surgery Performed Operation Date: 08/24/23 10:45 Actual Procedures p Total Hip Arthroplasty(Left) - Veronique Araujo MD Physical Therapy Treatment Note M2 PT-IP Current Condition Start: 08/25/23 13:39 Freq: NEEDED Status: Active Protocol: Document 08/25/23 09:15 AB (Rec: 08/25/23 13:58 AB [id number]) Physical Therapy Current Condition Current Condition Evaluation Date 08/25/23 Treatment Diagnosis s/p L SILVIA posterior; difficulty in walking Onset Date 08/24/23 M3 PT-IP Subjective Start: 08/25/23 13:39 Freq: NEEDED Status: Active Protocol: Document 08/26/23 11:05 AB (Rec: 08/26/23 12:26 AB [id number]) Subjective Physical Therapy Visit Type Type Treatment Note Visit Start Time 11:05 Visit Stop Time 11:35 Number of DIRECTOR OF CLINICAL TRIALS Visits 0 Physical Therapy Visit Comments Patient Comments agreeable to do PT Therapy Pain Assessment Pain When Pain Assessed During Mobility Pain Present Pain Present Pain Reported Location Left Hip Scale Used pain scale not stated Pain Behaviors Guarding Pain Management Techniques Distraction,Modification of Treatment,Re-positioning, Timing of Activity with Medications M4 PT-IP Mobility and Gait Start: 08/25/23 13:39 Freq: NEEDED Status: Active Protocol: Document 08/26/23 11:05 AB (Rec: 08/26/23 12:26 AB [id number]) PT-Bed Mobility Assessment Supine to Sit Supine to Sit Maximum Assistance,1 Person Assistance,2 Person Assistance ,Head of Bed Elevated,Bedrails Scooting Scooting to Edge of Bed Maximum Assistance PT-Transfer Assessment Sit to and From Stand Sit to and from Stand Maximum Assistance,2 Person Assistance,Use of Upper Extremities Equipment Transfer Assistive Device Front Wheeled Walker Orthotic/Prosthetic Devices or Brace: No Transfers Transfer Destination Chair Transfer Technique Stand Step Pivot Transfer Ability Level of Assist Maximum Assistance,2 Person Assistance,Use of Upper Extremities Comments Mobility Comments pt supine in bed and awake and able to converse today. agreed to do PT. reviewed LLE posterior hip precautions with pt. pt unable to recall any precautions. completed supine to sit max A x 1-2 and max cues. HOB elevated and pt used bed rail. pt requiring max A for sitting on EOB with increase posterior trunk lean. max A to total A for scooting to EOB. completed sit to stand max Ax 2 and max cues. presents with increase posterior trunk lean and cued pt to correct. completed step transfer to chair max A x 2 and max cues. pt required max A for weight shifing and moving with LE for stepping during transfers. max cues with all tasks. max A x 2 for controlled descent to chair. pt refused further activities. positioned pt on the chair. M5 PT-IP Objective Assessments Start: 08/25/23 13:39 Freq: NEEDED Status: Active Protocol: Document 08/25/23 09:15 AB (Rec: 08/25/23 13:58 AB [id number]) Orientation Orientation/Cognition Level of Alertness Confusional State Orientation Name Language Function Ability Hard of Hearing Safety Awareness Decreased Safety Awareness Memory Description Short Term Impaired,Fpc Impaired Strength Lower Extremity Strength Assessment Bilaterally Impaired Comments Strength Comments RLE: 3/5 LLE: 3-5 pt will say that she is not able to move LLE when instructed but when ask again to move, able to move but not full range. pt with difficulty initiating movement . Muscle Tone Muscle Tone WNL Yes M6 PT-IP Treatment Start: 08/25/23 13:39 Freq: NEEDED Status: Active Protocol: Document 08/26/23 11:05 AB (Rec: 08/26/23 12:26 AB [id number]) Physical Therapy Treatment Education Education Provided Precautions,Safety M7 PT-IP Assessment and Plan Start: 08/25/23 13:39 Freq: NEEDED Status: Active Protocol: Document 08/26/23 11:05 AB (Rec: 08/26/23 12:26 AB [id number]) PT Summary Assessment and Plan Potential Rehabilitation Potential Fair Summary Impairments Pain,ROM,Strength,Balance, Coordination,Sensation,Tone, Cognition,Bed Mobility, Transfers,Gait,Activity Tolerance Progress Towards Goals Slow Progress due to Pain,Slow Progress due to Activity Tolerance,Slow Progress - Other Assessment Summary pt continues to require max A x 2 to total A for mobility using FWW and unable to ambulate at this time. pt will require SNF rehab to improve strength and mobility. Goals Bed Mobility Goal Minimal Assistance Transfer Goal Minimal Assistance,Front Wheeled Walker Gait Goal Minimal Assistance,Front Wheel Walker Gait Distance 50 Other Goals improve bed mobility, transfers, ambulation using fWW ~ 100 ft SBA Days to Meet Goals 10 Frequency of Treatment Frequency Of Treatment Twice a Day Other frequency or as tolerated Treatment Plan Physical Therapy Treatment Plan Bed Mobility Training,Transfer Training,Gait Training, Therapeutic Exercise,Balance Retraining,Post Op Education, Discharge Planning,Hot or Cold Pack,Neuromuscular Re-ed, Coordination Retraining,Manual Therapy Precautions Posterior Hip Precautions No Hip Flexion > 90 degrees,No Hip Internal Rotation,No Hip Adduction Weight Bearing Status Weight Bearing Status Weight Bear as Tolerated Allowed Weight Bearing Amount (enter % LLE WBAT or #) (%) Recommendations To Nursing Amount of Assist Needed Mechanical Lift Discharge Recommendations PT Discharge Recommendations SNF Rehab Transportation Needs at Discharge Wheelchair/Cabulance
[2023-08-26 11:30] LABS: Appearance Urine UA CLEAR; Bilirubin Urine UA NEGATIVE (NEGATIVE); Color Urine UA YELLOW; Glucose Urine UA NEGATIVE (Negative); Ketones Urine UA NEGATIVE (NEGATIVE); Leukocyte Esterase Urine UA NEGATIVE (NEGATIVE); Nitrite Urine UA NEGATIVE (Negative); Occult Blood Urine UA 3+ (Negative); Protein Urine UA NEGATIVE (Negative); Specific Gravity Urine UA <=1.005 (1.000-1.035); Urobilinogen Urine UA 0.2 E.U./dL (0.2)
[2023-08-26 11:32] LABS: pH Urine UA 5.5 (4.5-8.0)
[2023-08-26 11:40] LABS: Bacteria Urine Occasional (0-1); Culture Indicated Urine Cult Not Indicated; RBC Urine 1-5/HPF (0-5/HPF); Squamous Epithelial Cell Urine None Seen (0-5/HPF); Urine Volume 10mL (spun); WBC Urine None Seen (0-5/HPF)
[2023-08-26] MEDS: hydrOXYzine HCL 25 MG TABLET 50 MG PO (13:31)
--- NOTE | 2023-08-26 14:30 | PT.IPTN ---
Current Diagnoses Unilateral primary osteoarthritis, left hip (08/24/23) Other retention of urine (08/24/23) Presence of unspecified artificial hip joint (08/24/23) Surgery Performed Operation Date: 08/24/23 10:45 Actual Procedures p Total Hip Arthroplasty(Left) - Veronique Araujo MD Physical Therapy Treatment Note M2 PT-IP Current Condition Start: 08/25/23 13:39 Freq: NEEDED Status: Active Protocol: Document 08/25/23 09:15 AB (Rec: 08/25/23 13:58 AB [id number]) Physical Therapy Current Condition Current Condition Evaluation Date 08/25/23 Treatment Diagnosis s/p L SILVIA posterior; difficulty in walking Onset Date 08/24/23 M3 PT-IP Subjective Start: 08/25/23 13:39 Freq: NEEDED Status: Active Protocol: Document 08/26/23 14:30 AB (Rec: 08/26/23 15:36 AB [id number]) Subjective Physical Therapy Visit Type Type Treatment Note Visit Start Time 14:30 Visit Stop Time 14:45 Number of INCIDENT RESPONSE COORDINATOR Visits 0 Physical Therapy Visit Comments Patient Comments requesting to go back to bed Therapy Pain Assessment Pain When Pain Assessed During Mobility Pain Present Pain Present Pain Reported Location Left Hip Scale Used pain scale not stated Pain Management Techniques Distraction,Modification of Treatment,Re-positioning, Timing of Activity with Medications M4 PT-IP Mobility and Gait Start: 08/25/23 13:39 Freq: NEEDED Status: Active Protocol: Document 08/26/23 14:30 AB (Rec: 08/26/23 15:36 AB [id number]) PT-Bed Mobility Assessment Sit to Supine Sit to Supine Maximum Assistance,Total Assistance,2 Person Assistance ,Bedrails Scooting Scooting Up and Down in Bed Dependent PT-Transfer Assessment Sit to and From Stand Sit to and from Stand Maximum Assistance,2 Person Assistance,Use of Upper Extremities Equipment Transfer Assistive Device Gait Belt,Front Wheeled Walker Orthotic/Prosthetic Devices or Brace: No Transfers Transfer Destination Bed Transfer Technique Stand Pivot Transfer Ability Level of Assist Maximum Assistance,2 Person Assistance,Use of Upper Extremities Comments Mobility Comments pt sitting on chair and requesting to go back to bed. completed sit to stand max A x 2 and max cues for techniques and precautions. continues to have increase retrolean. cued to correct. completed stand pivot transfer to EOB max A x 2 and max cues . required assist with weight shifting and moving LE. pt requiring increase time to process directions and complete all tasks. pt required max A x 2 for controlled descent to EOB. completed sit to supine max a x 2 to total A x2 and max cues . positioned pt in bed total A x 2. call light and table placed within reach. M5 PT-IP Objective Assessments Start: 08/25/23 13:39 Freq: NEEDED Status: Active Protocol: Document 08/25/23 09:15 AB (Rec: 08/25/23 13:58 AB [id number]) Orientation Orientation/Cognition Level of Alertness Confusional State Orientation Name Language Function Ability Hard of Hearing Safety Awareness Decreased Safety Awareness Memory Description Short Term Impaired,Decorator Lighting Fixtures Impaired Strength Lower Extremity Strength Assessment Bilaterally Impaired Comments Strength Comments RLE: 3/5 LLE: 3-5 pt will say that she is not able to move LLE when instructed but when ask again to move, able to move but not full range. pt with difficulty initiating movement . Muscle Tone Muscle Tone WNL Yes M6 PT-IP Treatment Start: 08/25/23 13:39 Freq: NEEDED Status: Active Protocol: Document 08/26/23 14:30 AB (Rec: 08/26/23 15:36 AB [id number]) Physical Therapy Treatment Education Education Provided Precautions,Safety M7 PT-IP Assessment and Plan Start: 08/25/23 13:39 Freq: NEEDED Status: Active Protocol: Document 08/26/23 14:30 AB (Rec: 08/26/23 15:36 AB [id number]) PT Summary Assessment and Plan Potential Rehabilitation Potential Fair Summary Impairments Pain,ROM,Strength,Balance, Coordination,Sensation,Tone, Cognition,Bed Mobility, Transfers,Gait,Activity Tolerance Progress Towards Goals Slow Progress due to Activity Tolerance,Slow Progress - Other Assessment Summary pt requiring max A x 2 total A x 2 with mobility using FWW and unable to ambulate at this time. pt will require SNF rehab to improve overall strength and mobility. Goals Bed Mobility Goal Minimal Assistance Transfer Goal Minimal Assistance,Front Wheeled Walker Gait Goal Minimal Assistance,Front Wheel Walker Gait Distance 50 Other Goals improve bed mobility, transfers, ambulation using fWW ~ 100 ft SBA Days to Meet Goals 10 Frequency of Treatment Frequency Of Treatment Twice a Day Other frequency or as tolerated Treatment Plan Physical Therapy Treatment Plan Bed Mobility Training,Transfer Training,Gait Training, Therapeutic Exercise,Balance Retraining,Post Op Education, Discharge Planning,Hot or Cold Pack,Neuromuscular Re-ed, Coordination Retraining,Manual Therapy Precautions Posterior Hip Precautions No Hip Flexion > 90 degrees,No Hip Internal Rotation,No Hip Adduction Weight Bearing Status Weight Bearing Status Weight Bear as Tolerated Allowed Weight Bearing Amount (enter % LLE WBAT or #) (%) Recommendations To Nursing Amount of Assist Needed Mechanical Lift Discharge Recommendations PT Discharge Recommendations SNF Rehab Transportation Needs at Discharge Wheelchair/Cabulance
[2023-08-26 20:00] VITALS: BP 127/58; PULSE 84; RESP 17; TEMP 35.9; O2SAT 96
[2023-08-26] MEDS: GABAPENTIN 300 MG CAPSULE PO (20:38)
[2023-08-27] MEDS: HYDROMORPHONE 0.5 MG INJ IV (04:38)
--- NOTE | 2023-08-27 05:57 | PC.NURSE ---
professional builder: Patient still having difficulty urinating, will release small amounts of urine when coughing. Bladder scanned at 0500, showed >400cc. Patient performed deep breathing/coughing exercises and tried to relax, unable to void. Straight cathed @ 0515, 400cc clear, orange urine out.
[2023-08-27] MEDS: PANTOPRAZOLE DR 20 MG TABLET PO (06:08)
--- NOTE | 2023-08-27 07:11 | P.PN_ITS ---
Subjective Subjective Date Patient Seen: 08/27/23 Time Patient Seen: 07:12 Interval history: Pt sitting up in bed. Still unable to void independently, though she is incontinent when she coughs. Her UA was negative. She is very uncomfortable w/ straight catheterization. Inability to void is a new occurrence for her. We discussed management for discharge. I recommended dumont cath w/ f/u w/ urology in 1 week for formal evaluation. Receiving supplemental O2 via NC at the time of my visit. She is not O2 dependent at home. I removed this during our conversation this morning and she maintained her O2 sats at 92% or greater. Exam Vital Signs (past 8 hours): Oxygen Delivery Method Nasal Cannula Oxygen Flow Rate 0 Narrative Exam Narrative: 4/5 hip flexors, quadriceps, hamstrings; 5/5 DF, PF, EHL on left. Sensation to light touch intact throughout LLE, calf soft and compressible. SAPNA functioning w/ scant bloody drainage. BUE tremor subjectively appears to be more pronounced today than yesterday. Per RN, IV infiltrated last night and was removed. Objective Labs 08/25/23 06:25 Labs: Laboratory Results - last 24 hr 08/26/23 10:40 Urine Color Yellow Urine Appearance Clear Urine pH 5.5 Ur Specific [place] <=1.005 Urine Protein Negative Urine Glucose (UA) Negative Urine Ketones Negative Urine Occult Blood 3+ H Urine Nitrate Negative Urine Bilirubin Negative Urine Urobilinogen 0.2 Ur Leukocyte Esterase Negative Urine RBC 1-5/hpf Urine WBC None seen Ur Squamous Epith Cells None seen Urine Bacteria Occasional (0-1) Ur Culture Indicated? Cult not indicated Vol Urine Centrifuged 10ml (spun) [facility] Medical History (Updated 08/26/23 @ 09:38 by Dian Mckeon PA-C) History of esophageal dilatation (09/2014) Anxiety Breast cancer, left (12/2018) Osteoarthritis Pre-diabetes Kidney stones HLD (hyperlipidemia) Benign essential tremor Arthritis GERD (gastroesophageal reflux disease) COPD (chronic obstructive pulmonary disease) Surgical History (Updated 08/26/23 @ 09:38 by Dian Mckeon PA-C) Hx of dilation and curettage History of lumpectomy of left breast (2018) History 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) History of tonsillectomy History of urologic surgery Hx of tubal ligation History of section Hx of bilateral cataract extraction Social History household members: significant other Smoking Status: Former smoker alcohol intake: former Assessment & Plan Post-op Assessment and plan (1) S/P total hip arthroplasty: Assessment and Plan narrative: Per CM note, it looks like awaiting auth for SNF placement. Will write d/c summary, print rxs and med list in the event she is able to d/c today. (2) Acute urinary retention: Assessment and Plan narrative: Increased tamsulosin. If pt unable to void and has >400 at next bladder scan, will have dumont catheter placed for discharge and order referral to urology for evaluation. Postoperative Procedures: Procedures Operation Date: 08/24/23 10:45 Actual Procedure Side Surgeon p Total Hip Arthroplasty Left Veronique Araujo MD Postoperative day: 3 Quality VTE Deep Vein Thrombosis/Pulmonary Embolism Present on Admission: No
--- NOTE | 2023-08-27 07:20 | P.DS_ITS ---
History of Present Illness History of Present Illness Date Patient Seen: 08/27/23 Time Patient Seen: 07:20 Chief complaint: OPB Narrative: Operative Date/Time/Diagnoses Date of procedure: 08/24/23 Time of procedure: 11:20 Pre-op diagnosis: Left hip OA Post-op diagnosis: same Procedure & Clinicians Procedure: Left total hip arthroplasty posterior approach Same procedure as scheduled: Yes Indications: The patient has had progressively worsening left hip pain with radiographic changes consistent with arthritis. Non-operative management has failed and the patient has requested total hip replacement. The risks, benefits and alternatives to surgery were discussed with the patient prior to proceeding. Risks discussed included, but were not limited to, failure to relieve pain, leg length discrepancy, dislocation, stiffness, infection, nerve damage, deep venous thrombosis, pulmonary embolism, stroke, coma, heart attack, permanent paralysis and , as well as the potential need for eventual revision of the prosthetic. Surgeon: Veronique Araujo Operations Plant Attendant: Rupesh Reid Anesthesia Type: Spinal and Sedation Operative Notes Findings: Severe left hip OA, adequate stability, soft Bone Closure Type: primary Specimen(s): none sent Prosthetic devices, grafts, tissues, transplants, or devices: Araujo and nephew R3 size 52, size 3 standard offset polar stem, neutral poly liner,one 6.5 mm screw, 36 by +0 femoral head Estimated Blood Loss (mL): 250 Blood products transfused: none Discharge Providers Provider Discharge Date: 09/13/23 Primary care physician: Debra Stevens PA-C Consults: 08/24/23 06:52 Consult to Anesthesiology Routine Comment: Consulting Provider: Anesthesiologist Reason for consultation: Regional block for post operative pain control 08/24/23 14:41 Consult to Discharge Planning Routine Comment: Please discuss SNF options w/ pt Consult to Occupational Therapy Evaluate & Treat Comment: Physician Instructions: Evaluate and treat Consult to Physical Therapy Evaluate & Treat Comment: Physician Instructions: post op SILVIA protocol 08/25/23 10:33 Consult to Home Health Routine Comment: Reason For Exam: Home health services upon discharge Discharge provider: Dian Mckeon PA-C Summary Hospital Course Discharge Diagnosis: Left hip osteoarthritis, s/p left total hip arthroplasty Acute post-op urinary retention Hospital Course: Ms Morris's hospital course was remarkable for urinary retention and slow progress w/ PT. She has a h/o urinary incontinence for which she takes oxybutynin daily; this was continued postoperatively despite inability to void. Tamsulosin was started on POD# 2; oxybutynin was given on POD# 2 and then d/c'd. On the morning of POD# 3, pt still had not voided independently, though she had an episode of urinary incontinence while coughing. We discussed options and determined that catheter placement and f/u w/ urology as an outpt would be the best decision for discharge. UA done on POD# 2 was positive for blood but negative for other signs of infection. PT evaluated her throughout her stay and recommended SNF placement for further rehab prior to d/c home with her partner, Christophe. Exam Vital Signs (past 8 hours): Oxygen Delivery Method Nasal Cannula Oxygen Flow Rate 0 Narrative Exam Narrative: See today's progress note. Objective Labs 08/24/ 06:25 Labs: Laboratory Results - last 24 hr 08/26/23 10:40 Urine Color Yellow Urine Appearance Clear Urine pH 5.5 Ur Specific [place] <=1.005 Urine Protein Negative Urine Glucose (UA) Negative Urine Ketones Negative Urine Occult Blood 3+ H Urine Nitrate Negative Urine Bilirubin Negative Urine Urobilinogen 0.2 Ur Leukocyte Esterase Negative Urine RBC 1-5/hpf Urine WBC None seen Ur Squamous Epith Cells None seen Urine Bacteria Occasional (0-1) Ur Culture Indicated? 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 Will send referral to urology. D/c to SNF pending auth. F/u in office as scheduled. ASA BiD x 6 weeks for VTE prophylaxis. Discharge Plan Discharge Plan Patient Disposition: SNF Transfer to: [facility] and [facility] Other facility: Placement facility per Transportation: Facility vehicle I certify the postop hospital long term care is medically necessary on a continuing basis for any conditions for which he/ she received care during this hospitalization.: Yes The receiving facility has agreed to accept transfer and provide medical treatment.: Yes Discharge orders & Medications Discharge Orders: Discharge (Order); Ordered 08/27/23 Ordered By: Dian Mckeon Prescriptions: New oxycodone 5 mg Tablet 5 mg PO Q3H PRN (Reason: Pain, Moderate (4-6)) Qty: 30 0RF tamsulosin [Flomax] 0.4 mg Capsule 0.4 mg PO DAILY PRN (Reason: urinary retention) Qty: 10 0RF Continued omeprazole 20 mg capsule,delayed release(DR/EC) 20 mg PO BID cetirizine [Zyrtec] 10 mg Tablet 10 mg PO DAILY topiramate [Topamax] 25 mg Tablet 25 mg PO BID Patient Comments: 2 tabs qam, 1 tab qpm acetaminophen 500 mg Tablet 1,000 mg PO DAILY PRN (Reason: Pain) ibuprofen 200 mg Tablet 600 mg PO DAILY PRN (Reason: Pain) gabapentin 300 mg Capsule 300 mg PO SEEINSTR Patient Comments: 3 tabs each am, 1 tab qpm rosuvastatin 10 mg Tablet 10 mg PO DAILY Discontinued oxybutynin chloride 5 mg Tablet 5 mg PO DAILY Follow up/Referrals: Barbra Castaneda MD [Physician] - 1 Week (H/o urinary incontinence w/ acute urinary retention following hip replacement.) Veronique Araujo MD [Physician] - (Follow up at [facility] as scheduled in 2 weeks. ) Debra Stevens PA-C [Primary Care Provider] - Diet/Activity/Treatments Diet: Diet as Tolerated Activity: Weightbearing as tolerated. Maintain posterior hip precautions Cold/Heat Therapy: Ice the hip pain for additional pain control Skin/Wound/Dressing Care Report to your healthcare provider any signs of infection, such as:: chills, fever, night sweats, unusual drainage and unusual redness Dressing: May shower. Keep dressing in place until follow up appt. In 5-7 days, batteries will , at which point you can cut off the battery pack and dispose of it, but keep the dressing in place. No bathing or otherwise soaking incision. Call the office if the dressing becomes saturated inside. [facility] Reason for rehabilitation: Post-operative therapy Rehab type: Physical therapy and Occupational therapy Visit Report/Discharge Packet Instructions: DI for Hip Replacement Stand Alone Forms: Surgery Discharge Discharge Data Primary Care Provider: Debra Stevens Attending Provider: Veronique Araujo VTE Deep Vein Thrombosis/Pulmonary Embolism Present on Admission: No
[2023-08-27 08:01] VITALS: BP 138/60; PULSE 75; RESP 18; TEMP 37.1; O2SAT 93
[2023-08-27] MEDS: TAMSULOSIN 0.4 MG CAPSULE 0.8 MG PO (08:09)
[2023-08-27] MEDS: ATORVASTATIN 20 MG TABLET PO (08:10)
[2023-08-27] MEDS: DOCUSATE 100 MG CAPSULE PO (08:10)
[2023-08-27] MEDS: LORATADINE 10 MG TABLET PO (08:11)
[2023-08-27] MEDS: GABAPENTIN 300 MG CAPSULE 900 MG PO (08:11)
[2023-08-27] MEDS: TOPIRAMATE 25 MG TABLET PO (08:11)
[2023-08-27] MEDS: ASPIRIN EC 81 MG TABLET PO (08:11)
[2023-08-27] MEDS: hydrOXYzine HCL 25 MG TABLET 50 MG PO (12:00)
[2023-08-27 12:14] VITALS: BP 129/66; PULSE 103; RESP 18; TEMP 37.5; O2SAT 93
[2023-08-27 12:15] LABS: COVID19 -Nasal RAPID Negative (Negative)
--- NOTE | 2023-08-27 12:18 | CM.DPNOTE ---
Addendum entered by CA Ramos 08/27/23 13:18: ADD: Faxed Hosp exempt PASRR to [facility] contractor at [phone] Original Note: DC Note Patient has been discharged to [facility]; Lizzy at [place] has approved this auth request Auth # [id number] July at [facility] accepts patient for admission today. Hospital exempt PASRR completed and signed by Jaime BECERRA. Completed and signed med list, Rx and PASRR faxed to [facility]. COVID swab done per request and pending. Updated patient and spouse who remain agreeable to plan. Plan: Discharge to [facility] via cabulance, peanut picker at 1300, [place] auth in place. RN to call report. GABRIEL
[2023-08-27] MEDS: OXYCODONE IR 10 MG TABLET PO (12:25)
--- NOTE | 2023-08-27 13:21 | PC.NURSE ---
1140 bladder scan showing [id number], Laura cath placed aseptically. pt dc to SNF, pt aware, belongings sent with pt.
== END 2023-08-27 13:00 | DRG 470 ==
LOC: OR 08-28 07:56 → AC 08-28 07:56
PROVIDERS: Physician Assistant; Admitting Provider Orthopaedic Surgery; PCP Physician Assistant Medical; Referring Provider Orthopaedic Surgery; Visit Provider Orthopaedic Surgery
PROC: 0SRB0JZ Replacement of Left Hip Joint with Synthetic Substitute, Open Approach (ICD-10-PCS; CPT 27130; principal; 2023-08-24 10:45)
DX: M16.12 Unilateral primary osteoarthritis, left hip (principal); R33.9 Retention of urine, unspecified; R32 Unspecified urinary incontinence; K21.9 Gastro-esophageal reflux disease without esophagitis; E78.5 Hyperlipidemia, unspecified
CPT/HCPCS: 36415; 72170; 73502; 81001; 85014; 85018; 87635; 97163; 97165; 97530; C1776; A9270; C9290; J0171; J0690; J1170; J2175; J2250; J2405; J2704; J3010